=== PATIENT | female | born 1970 | race African-American/Black ===

== ENCOUNTER 2021-02-06 15:54 | Emergency (ER) | payer MEDICAID ==
[~2021-02-06] VITALS: Ht 162.6 cm; Wt 118.2 kg
[~2021-02-06 15:54] MED LIST: AMLO-258 PO; DULO20CA27 PO; FURO40 PO; HYDR25TA2 PO; LOSA50TA37 PO; METH2.5T6 PO
[2021-02-06 16:47] LABS: BASOPHILS % (AUTO) 0.9 % (0.0-2.0); EOSINOPHILS % (AUTO) 2.2 % (1.0-6.0); HEMATOCRIT 37.2 % (36-46); HEMOGLOBIN 12.2 g/dL (12.0-16.0); LYMPHOCYTES # (AUTO) 2.1 K/uL (1.0-4.8); LYMPHOCYTES % (AUTO) 22.9 % (22.0-44.0); MEAN CORPUSCULAR HEMOGLOBIN 27.8 pg (26.0-34.0); MEAN CORPUSCULAR HGB CONC 32.8 G/dL (31.0-37.0); MEAN CORPUSCULAR VOLUME 85 fL (80-100); MONOCYTES # (AUTO) 0.7 K/uL (0.1-1.0); MONOCYTES % (AUTO) 7.9 % (2.0-9.0); NEUTROPHILS % (AUTO) 66.1 % (40.0-70.0); PLATELET COUNT (AUTO) 424 K/uL (150-450); RED CELL DISTRIBUTION WIDTH 13.8 % (11.5-14.5)
[2021-02-06 16:50] LABS: ANION GAP 8 mmol/L (8-16); CALCIUM, TOTAL 8.8 mg/dL (8.8-10.5); CARBON DIOXIDE 32 mmol/L (22-29); CHLORIDE 104 mmol/L (98-107); CREATININE 0.78 mg/dL (0.60-1.30); GLOMERULAR FILTR. RATE CALC > 60 mL/min (>60); GLUCOSE,RANDOM 164 mg/dL (70-110); SODIUM SERUM 144 mmol/L (136-145); UREA NITROGEN, BLOOD 13 mg/dL (7-18)
[2021-02-06 16:56] LABS: ALANINE AMINOTRANSFERASE 31 U/L (12-78); ALBUMIN 3.1 g/dL (3.4-5.0); ALKALINE PHOSPHATASE 89 U/L (46-116); ASPARTATE AMINOTRANSFERASE 16 U/L (15-37); BILIRUBIN,TOTAL 0.2 mg/dL (0.1-1.0); TOTAL PROTEIN, SERUM 7.8 g/dL (6.4-8.2)
[2021-02-06 16:57] LABS: B-TYPE NATRIURETIC PEPTIDE 24 pg/mL (0-100)
[2021-02-06] MEDS ORDERED: HYDR25TA84 PO (17:10)
[2021-02-06] MEDS ORDERED: ATOR10TA69 PO (17:10)
[2021-02-06] MEDS ORDERED: CITA-144 PO (17:10)
[2021-02-06] MEDS ORDERED: METF-1211 PO (17:10)
[2021-02-06] MEDS ORDERED: FLUT1AER4 IH (17:10)
[2021-02-06] MEDS ORDERED: IPRATROPIUM BROMIDE 0.5 MG/2.5 ML NEB SOLUTION NEB ONE (17:15)
[2021-02-06] MEDS ORDERED: ALBUTEROL SULFATE 5 MG/ML 20 ML NEB SOLN [BULK] NEB ONE (17:15)
[2021-02-06] MEDS ORDERED: 0.9% SODIUM CHLORIDE 15 ML NEB SOLUTION NEB ONE (17:20)
[2021-02-06] MEDS ORDERED: PredniSONE 20 MG TABLET PO ONE (18:30)
[2021-02-06 19:22] VITALS: BP 133/70
== END 2021-02-06 19:25 | disposition home or self-care (01) ==
LOC: EMS 15:58
DX: J45.909 Unspecified asthma, uncomplicated (principal); I11.0 Hypertensive heart disease with heart failure; I50.9 Heart failure, unspecified; F20.9 Schizophrenia, unspecified; F12.90 Cannabis use, unspecified, uncomplicated; Z79.899 Other long term (current) drug therapy
CPT/HCPCS: 36415; 71045; 80053; 83880; 84484; 85025; 85379; 93005; 94640; 99285; J7512; 94644; J7611

== ENCOUNTER 2021-03-11 12:13 | Emergency (ER) | payer MEDICAID ==
[~2021-03-11] VITALS: Ht 165.1 cm; Wt 122.7 kg
[~2021-03-11 12:13] MED LIST changes: +ATOR10TA69 PO; +CITA-144 PO; +FLUT1AER4 IH; +HYDR25TA84 PO; +METF-1211 PO
[2021-03-11 12:20] VITALS: BP 151/91
[2021-03-11] MEDS ORDERED: FUROSEMIDE 20 MG TABLET PO ONE (13:30)
[2021-03-11 13:32] LABS: BASOPHILS % (AUTO) 0.9 % (0.0-2.0); EOSINOPHILS % (AUTO) 1.8 % (1.0-6.0); HEMATOCRIT 37.3 % (36-46); LYMPHOCYTES # (AUTO) 1.7 K/uL (1.0-4.8); LYMPHOCYTES % (AUTO) 19.7 % (22.0-44.0); MEAN CORPUSCULAR HEMOGLOBIN 27.4 pg (26.0-34.0); MEAN CORPUSCULAR VOLUME 86 fL (80-100); MONOCYTES # (AUTO) 0.7 K/uL (0.1-1.0); MONOCYTES % (AUTO) 7.6 % (2.0-9.0); NEUTROPHILS # (AUTO) 6.2 K/uL (1.8-7.7); PLATELET COUNT (AUTO) 358 K/uL (150-450); RED BLOOD CELL COUNT(AUTO) 4.36 MIL/uL (4.00-5.20); RED CELL DISTRIBUTION WIDTH 13.9 % (11.5-14.5)
[2021-03-11 13:41] LABS: ANION GAP 6 mmol/L (8-16); CALCIUM, TOTAL 8.9 mg/dL (8.8-10.5); CARBON DIOXIDE 30 mmol/L (22-29); CHLORIDE 105 mmol/L (98-107); CREATININE 0.73 mg/dL (0.60-1.30); GLOMERULAR FILTR. RATE CALC > 60 mL/min (>60); GLUCOSE,RANDOM 171 mg/dL (70-110); SODIUM SERUM 141 mmol/L (136-145); UREA NITROGEN, BLOOD 15 mg/dL (7-18)
[2021-03-11 13:46] LABS: ALANINE AMINOTRANSFERASE 29 U/L (12-78); ALKALINE PHOSPHATASE 87 U/L (46-116); ASPARTATE AMINOTRANSFERASE 13 U/L (15-37); BILIRUBIN,TOTAL 0.2 mg/dL (0.1-1.0); TOTAL PROTEIN, SERUM 7.7 g/dL (6.4-8.2)
== END 2021-03-11 14:58 | disposition home or self-care (01) ==
LOC: EMS 12:13
DX: M60.9 Myositis, unspecified (principal); M06.9 Rheumatoid arthritis, unspecified; E11.65 Type 2 diabetes mellitus with hyperglycemia; I11.0 Hypertensive heart disease with heart failure; I50.9 Heart failure, unspecified; F20.9 Schizophrenia, unspecified; J45.909 Unspecified asthma, uncomplicated; Z88.0 Allergy status to penicillin; Z88.8 Allergy status to other drugs, medicaments and biological substances; Z79.899 Other long term (current) drug therapy
CPT/HCPCS: 80053; 82962; 84484; 85025; 93005; 99284

== ENCOUNTER 2021-04-01 13:44 | Emergency (ER) | payer MEDICAID ==
[~2021-04-01] VITALS: Ht 162.6 cm; Wt 148.4 kg
[2021-04-01 15:32] VITALS: BP 158/104
== END 2021-04-01 16:26 | disposition home or self-care (01) ==
LOC: EMS 13:44
DX: M79.18 Myalgia, other site (principal); I11.0 Hypertensive heart disease with heart failure; I50.9 Heart failure, unspecified; G89.4 Chronic pain syndrome; E11.9 Type 2 diabetes mellitus without complications; F20.9 Schizophrenia, unspecified; J45.909 Unspecified asthma, uncomplicated; Z88.0 Allergy status to penicillin; Z88.8 Allergy status to other drugs, medicaments and biological substances; Z79.899 Other long term (current) drug therapy; Z76.0 Encounter for issue of repeat prescription
CPT/HCPCS: 99281; Z7502

== ENCOUNTER 2021-04-20 20:34 | Emergency (ER) | payer MEDICAID ==
[~2021-04-20] VITALS: Ht 162.6 cm; Wt 160.4 kg
[~2021-04-20 20:34] MED LIST changes: +LOSA-382 PO; -LOSA50TA37 PO
[2021-04-20 20:44] VITALS: BP 162/100
== END 2021-04-20 23:15 | disposition left against medical advice (07) ==
LOC: EMS 20:35
DX: R22.0 Localized swelling, mass and lump, head (principal); Z53.21 Procedure and treatment not carried out due to patient leaving prior to being seen by health care provider
CPT/HCPCS: 93005

== ENCOUNTER 2021-04-26 16:26 | Emergency (ER) | payer MEDICAID ==
[~2021-04-26] VITALS: Ht 162.6 cm; Wt 143.2 kg
[2021-04-26 17:33] LABS: BASOPHILS % (AUTO) 0.8 % (0.0-2.0); EOSINOPHILS % (AUTO) 2.5 % (1.0-6.0); HEMATOCRIT 38.7 % (36-46); HEMOGLOBIN 12.8 g/dL (12.0-16.0); LYMPHOCYTES # (AUTO) 1.3 K/uL (1.0-4.8); MEAN CORPUSCULAR HEMOGLOBIN 27.3 pg (26.0-34.0); MEAN CORPUSCULAR HGB CONC 32.9 G/dL (31.0-37.0); MEAN CORPUSCULAR VOLUME 83 fL (80-100); MONOCYTES # (AUTO) 0.7 K/uL (0.1-1.0); MONOCYTES % (AUTO) 7.9 % (2.0-9.0); NEUTROPHILS # (AUTO) 6.2 K/uL (1.8-7.7); NEUTROPHILS % (AUTO) 73.8 % (40.0-70.0); PLATELET COUNT (AUTO) 396 K/uL (150-450); RED BLOOD CELL COUNT(AUTO) 4.68 MIL/uL (4.00-5.20); RED CELL DISTRIBUTION WIDTH 14.4 % (11.5-14.5)
[2021-04-26 17:41] LABS: ANION GAP 6 mmol/L (8-16); CALCIUM, TOTAL 9.2 mg/dL (8.8-10.5); CARBON DIOXIDE 31 mmol/L (22-29); CHLORIDE 104 mmol/L (98-107); CREATININE 0.97 mg/dL (0.60-1.30); GLOMERULAR FILTR. RATE CALC > 60 mL/min (>60); GLUCOSE,RANDOM 135 mg/dL (70-110); POTASSIUM 3.9 mmol/L (3.5-5.1); SODIUM SERUM 141 mmol/L (136-145); UREA NITROGEN, BLOOD 11 mg/dL (7-18)
[2021-04-26 17:54] LABS: B-TYPE NATRIURETIC PEPTIDE 65 pg/mL (0-100)
[2021-04-26 18:06] LABS: ALANINE AMINOTRANSFERASE 76 U/L (12-78); ALBUMIN 3.2 g/dL (3.4-5.0); ALKALINE PHOSPHATASE 111 U/L (46-116); ASPARTATE AMINOTRANSFERASE 33 U/L (15-37); BILIRUBIN,TOTAL 0.4 mg/dL (0.1-1.0); CREATINE KINASE, TOTAL ONLY 161 U/L (26-192); HCG,QUANTITATIVE 1 mIU/mL (0-6); TOTAL PROTEIN, SERUM 8.4 g/dL (6.4-8.2)
[2021-04-26 18:09] LABS: COVID AG,FIA SOURCE NASOPHARYNGEAL
[2021-04-26 20:17] VITALS: BP 131/113
== END 2021-04-26 20:48 | disposition left against medical advice (07) ==
LOC: EMS 16:30
DX: R07.89 Other chest pain (principal); R06.02 Shortness of breath; F20.9 Schizophrenia, unspecified; I11.0 Hypertensive heart disease with heart failure; I50.9 Heart failure, unspecified; J45.909 Unspecified asthma, uncomplicated; F12.90 Cannabis use, unspecified, uncomplicated; F15.90 Other stimulant use, unspecified, uncomplicated; F17.210 Nicotine dependence, cigarettes, uncomplicated; Z88.0 Allergy status to penicillin; Z88.8 Allergy status to other drugs, medicaments and biological substances; Z79.84 Long term (current) use of oral hypoglycemic drugs; Z79.899 Other long term (current) drug therapy; Z20.822 Contact with and (suspected) exposure to COVID-19
CPT/HCPCS: 71045; 80053; 82550; 82962; 83880; 84484; 84702; 85025; 85379; 87040; 93005; 99285; 36415-L1; 36415-TC

== ENCOUNTER 2021-06-02 16:41 | Inpatient (IN) | payer MEDICAID ==
[~2021-06-02] VITALS: Ht 162.6 cm; Wt 147.5 kg
[2021-06-02 17:17] LABS: BASOPHILS % (AUTO) 0.7 % (0.0-2.0); HEMATOCRIT 34.4 % (36-46); HEMOGLOBIN 11.2 g/dL (12.0-16.0); LYMPHOCYTES # (AUTO) 2.2 K/uL (1.0-4.8); LYMPHOCYTES % (AUTO) 25.5 % (22.0-44.0); MEAN CORPUSCULAR HEMOGLOBIN 26.8 pg (26.0-34.0); MEAN CORPUSCULAR HGB CONC 32.5 G/dL (31.0-37.0); MEAN CORPUSCULAR VOLUME 83 fL (80-100); MONOCYTES # (AUTO) 0.7 K/uL (0.1-1.0); MONOCYTES % (AUTO) 7.7 % (2.0-9.0); NEUTROPHILS # (AUTO) 5.4 K/uL (1.8-7.7); NEUTROPHILS % (AUTO) 64.1 % (40.0-70.0); PLATELET COUNT (AUTO) 421 K/uL (150-450); RED BLOOD CELL COUNT(AUTO) 4.15 MIL/uL (4.00-5.20); RED CELL DISTRIBUTION WIDTH 14.3 % (11.5-14.5)
[2021-06-02 17:24] LABS: ANION GAP 8 mmol/L (8-16); CARBON DIOXIDE 30 mmol/L (22-29); CHLORIDE 102 mmol/L (98-107); CREATININE 0.78 mg/dL (0.60-1.30); GLOMERULAR FILTR. RATE CALC > 60 mL/min (>60); GLUCOSE,RANDOM 166 mg/dL (70-110); POTASSIUM 3.7 mmol/L (3.5-5.1); SODIUM SERUM 140 mmol/L (136-145); UREA NITROGEN, BLOOD 15 mg/dL (7-18)
[2021-06-02 17:30] LABS: ALANINE AMINOTRANSFERASE 29 U/L (12-78); ALKALINE PHOSPHATASE 88 U/L (46-116); ASPARTATE AMINOTRANSFERASE 18 U/L (15-37); BILIRUBIN,TOTAL 0.2 mg/dL (0.1-1.0); TOTAL PROTEIN, SERUM 7.8 g/dL (6.4-8.2)
[2021-06-02 17:31] LABS: AMPHET/METH SCREEN,URINE NEGATIVE (NEGATIVE); BARBITURATE SCREEN, URINE NEGATIVE (NEGATIVE); BENZODIAZEPINES SCREEN,URINE NEGATIVE (NEGATIVE); CANNABINOID SCREEN,URINE POSITIVE (NEGATIVE); COCAINE SCREEN,URINE NEGATIVE (NEGATIVE); METHADONE SCREEN, URINE NEGATIVE (NEGATIVE); OPIATE SCREEN,URINE NEGATIVE (NEGATIVE); PHENCYCLIDINE SCREEN,URINE NEGATIVE (NEGATIVE)
[2021-06-02] MEDS ORDERED: QUEtiapine FUMARATE 100 MG TABLET PO PRN (18:15)
[2021-06-02] MEDS ORDERED: ZOLPIDEM TARTRATE 10 MG TABLET PO PRN (18:15)
[2021-06-02 18:33] LABS: COVID AG,FIA SOURCE NASOPHARYNGEAL
[2021-06-02] MEDS ORDERED: HALOPERIDOL LACTATE 5 MG/ML VIAL ONE (20:00)
[2021-06-02] MEDS ORDERED: DiphenhydrAMINE HCL 50 MG/ML VIAL ONE (20:00)
[2021-06-02] MEDS ORDERED: LORazepam 2 MG/ML VIAL ONE (20:00)
[2021-06-02 20:29] VITALS: BP 156/99
[2021-06-02 20:55] LABS: APPEARANCE,URINE TURBID (CLEAR); BILIRUBIN,URINE NEGATIVE (NEGATIVE); GLUCOSE, URINE (UA) NEGATIVE (NEGATIVE); KETONES,URINE NEGATIVE (NEGATIVE); LEUKOCYTE ESTERASE ,URINE NEGATIVE (NEGATIVE); NITRATE,URINE NEGATIVE (NEGATIVE); OCCULT BLOOD,URINE MODERATE (NEGATIVE); PROTEIN,URINE NEGATIVE (NEGATIVE)
[2021-06-02 21:07] LABS: AMORPHOUS SEDIMENT,UR Many /LPF (None Seen); BACTERIA,URINE None Seen /HPF (None Seen); RBC,URINE 0-2 /HPF (0-2); SQUAMOUS EPITHELIAL CELL,UR Rare /LPF (None Seen); WBC,URINE 0-2 /HPF (0-5)
[2021-06-02] MEDS ORDERED: NICOTINE 7 MG/24 HOUR PATCH TD PRN (21:30)
[2021-06-03] MEDS: MetFORMIN HCL 500 MG TABLET PO SCH ×3 (06:54→17:45)
[2021-06-03] MEDS ORDERED: CloNIDine HCL 0.1 MG TABLET PO PRN (07:00)
[2021-06-03] MEDS ORDERED: NICOTINE 14 MG/24 HOUR PATCH TD PRN (07:00)
[2021-06-03] MEDS ORDERED: DOCUSATE SODIUM 100 MG CAPSULE PO PRN (07:00)
[2021-06-03] MEDS ORDERED: LOPERAMIDE HCL 2 MG CAPSULE PO PRN (07:00)
[2021-06-03] MEDS ORDERED: MAGNESIUM HYDROXIDE SUSPENSION 30 ML UDCUP PO PRN (07:00)
[2021-06-03] MEDS ORDERED: ONDANSETRON HCL 4 MG TABLET PO PRN (07:00)
[2021-06-03] MEDS ORDERED: ALBUTEROL SULFATE HFA 90 MCG/PUFF 8 GM INHALER IH PRN (07:00)
[2021-06-03] MEDS ORDERED: PETROLATUM,WHITE 28 GM JELLY TP PRN (07:00)
[2021-06-03] MEDS ORDERED: ACETAMINOPHEN 325 MG TABLET PO PRN (07:00)
[2021-06-03] MEDS ORDERED: IBUPROFEN 400 MG TABLET PO PRN (07:00)
[2021-06-03] MEDS ORDERED: MAG HYDROX/AL HYDROX/SIMETH ES 30 ML SUSPENSION UDCUP PO PRN (07:00)
[2021-06-03] MEDS ORDERED: GuaiFENesin/D-METHORPHAN [SUGAR-FREE] 200-20MG/10 ML SYRUP UDCUP PO PRN (07:00)
[2021-06-03] MEDS ORDERED: MetFORMIN HCL 500 MG TABLET PO SCH (07:30)
[2021-06-03 07:57] LABS: CHOL/HDL RATIO 2.4 (3.9-5.7)
[2021-06-03 08:00] VITALS: BP 157/92
[2021-06-03] MEDS ORDERED: FLUTICASONE SALMETEROL IH SCH (09:00)
[2021-06-03] MEDS: ATORVASTATIN CALCIUM 10 MG TABLET PO SCH (10:07)
[2021-06-03] MEDS: FUROSEMIDE 40 MG TABLET PO SCH (10:07)
[2021-06-03] MEDS: LORazepam 2 MG TABLET PO PRN ×2 (10:07→17:45)
[2021-06-03] MEDS: HydrALAZINE HCL 25 MG TABLET PO SCH ×2 (10:07→17:44)
[2021-06-03] MEDS: LOSARTAN POTASSIUM 50 MG TABLET PO SCH (10:07)
[2021-06-03] MEDS: AmLODIPine BESYLATE 10 MG TABLET PO SCH (10:07)
[2021-06-03] MEDS ORDERED: ARIP15TA43 PO (11:00)
[2021-06-03] MEDS ORDERED: ARIP15TA27 PO (11:22)
[2021-06-03] MEDS ORDERED: NITR0.4T52 SL (11:22)
[2021-06-03] MEDS ORDERED: CETI10TA58 PO (11:22)
[2021-06-03] MEDS ORDERED: ATEN-73 PO (11:22)
[2021-06-03] MEDS ORDERED: FLUT1AER7 IH (11:22)
[2021-06-03] MEDS: CITALOPRAM HYDROBROMIDE 20 MG TABLET PO SCH (12:26)
[2021-06-03 17:00] VITALS: BP 150/98
[2021-06-03] MEDS: ARIPiprazole 15 MG TABLET PO SCH (20:57)
[2021-06-04] MEDS: MetFORMIN HCL 500 MG TABLET PO SCH ×2 (06:54→17:26)
[2021-06-04 08:06] VITALS: BP 140/92
[2021-06-04] MEDS: CITALOPRAM HYDROBROMIDE 20 MG TABLET PO SCH (09:00)
[2021-06-04] MEDS: FUROSEMIDE 40 MG TABLET PO SCH (09:11)
[2021-06-04] MEDS: AmLODIPine BESYLATE 10 MG TABLET PO SCH (09:11)
[2021-06-04] MEDS: HydrALAZINE HCL 25 MG TABLET PO SCH ×2 (09:11→17:25)
[2021-06-04] MEDS: LOSARTAN POTASSIUM 50 MG TABLET PO SCH (09:11)
[2021-06-04] MEDS: ATORVASTATIN CALCIUM 10 MG TABLET PO SCH (09:11)
[2021-06-04 16:42] VITALS: BP 124/73
[2021-06-04] MEDS: ARIPiprazole 15 MG TABLET PO SCH (20:17)
[2021-06-05] MEDS: MetFORMIN HCL 500 MG TABLET PO SCH ×3 (06:35→17:18)
[2021-06-05] MEDS: CITALOPRAM HYDROBROMIDE 20 MG TABLET PO SCH (09:00)
[2021-06-05 09:20] VITALS: BP 123/70
[2021-06-05] MEDS: HydrALAZINE HCL 25 MG TABLET PO SCH ×3 (09:48→17:00)
[2021-06-05] MEDS: ATORVASTATIN CALCIUM 10 MG TABLET PO SCH (09:48)
[2021-06-05] MEDS: AmLODIPine BESYLATE 10 MG TABLET PO SCH (09:48)
[2021-06-05] MEDS: LOSARTAN POTASSIUM 50 MG TABLET PO SCH (09:48)
[2021-06-05] MEDS: FUROSEMIDE 40 MG TABLET PO SCH (09:48)
[2021-06-05 16:00] VITALS: BP 101/65
[2021-06-05] MEDS: ARIPiprazole 15 MG TABLET PO SCH (20:31)
[2021-06-06] MEDS: MetFORMIN HCL 500 MG TABLET PO SCH (06:32)
[2021-06-06] MEDS: LOSARTAN POTASSIUM 50 MG TABLET PO SCH (09:00)
[2021-06-06] MEDS: CITALOPRAM HYDROBROMIDE 20 MG TABLET PO SCH (09:00)
[2021-06-06] MEDS: FUROSEMIDE 40 MG TABLET PO SCH (09:00)
[2021-06-06] MEDS: HydrALAZINE HCL 25 MG TABLET PO SCH (09:00)
[2021-06-06] MEDS: ATORVASTATIN CALCIUM 10 MG TABLET PO SCH (09:00)
[2021-06-06] MEDS: AmLODIPine BESYLATE 10 MG TABLET PO SCH (09:00)
[2021-06-06] MEDS ORDERED: ARIP15TA27 PO (09:53)
[2021-06-06] MEDS ORDERED: CITA-144 PO (09:53)
[2021-06-06 10:21] VITALS: BP 128/94
[2021-06-06] MEDS ORDERED: FURO40 PO (11:41)
[2021-06-06] MEDS ORDERED: HYDR25TA84 PO (11:43)
[2021-06-06] MEDS ORDERED: METF-1211 PO (11:50)
== END 2021-06-06 12:45 | disposition home or self-care (01) | DRG 750 ==
LOC: EMS 16:44 → 3EI 18:11
PROVIDERS: ADMIT Psychiatry & Neurology Psychiatry; ATTEND Psychiatry & Neurology Psychiatry
DX: F25.1 Schizoaffective disorder, depressive type (principal); R45.851 Suicidal ideations; I50.9 Heart failure, unspecified; E11.9 Type 2 diabetes mellitus without complications; I11.0 Hypertensive heart disease with heart failure; E78.5 Hyperlipidemia, unspecified; F12.10 Cannabis abuse, uncomplicated; F15.90 Other stimulant use, unspecified, uncomplicated; F17.200 Nicotine dependence, unspecified, uncomplicated; J45.909 Unspecified asthma, uncomplicated; L30.9 Dermatitis, unspecified; F32.A Depression, unspecified; M06.9 Rheumatoid arthritis, unspecified; M19.90 Unspecified osteoarthritis, unspecified site; Z59.00 Homelessness unspecified; Z79.899 Other long term (current) drug therapy; Z88.0 Allergy status to penicillin; Z88.8 Allergy status to other drugs, medicaments and biological substances
CPT/HCPCS: 80053; 80061; 81001; 85025; 99285; G0480; J1200; J1630; J2060